=== PATIENT | male | born 1935 | race Caucasian/White ===

== ENCOUNTER 2022-05-18 08:02 | Emergency (ER) | payer MEDICARE, OTHER ==
[~2022-05-18] VITALS: Ht 182.9 cm; Wt 95.2 kg
[~2022-05-18 08:02] MED LIST: ALBU90OI61 INH; ARGINAID POWDE1 EACH PO; ASPI325 PO; ASPI81EC PO; ATOR40TA PO; BISA10S PR; CVS DISPOSABLE399 ML PR; DIAZ2 PO; Docu Liqui50 MG/5 ML PO; Ferrous Sulfat325 M2 PO; HYDR1TAB94 PO; Hair, Skin & N1 EACH PO; MELA3 PO; Milk Of Ma400 MG/5 M PO; NIFE30ER PO; OXYACE5T PO; PANT40 PO; POLY17UD PO; SIMV10 PO; SIMV40 PO; TAMS.4ER PO; VITAMIN D250000 UNIT PO
[2022-05-18 08:26] LABS: Source, Urine Clean Catch
[2022-05-18 08:27] LABS: BASOPHILS ABSOLUTE AUTO 0.04 K/mm3 (0.00-0.23); BASOPHILS PERCENT AUTO 0 % (0-2); EOSINOPHILS ABSOLUTE AUTO 0.03 K/mm3 (0.00-0.68); EOSINOPHILS PERCENT AUTO 0 % (0-6); Hematocrit 45.5 % (37.0-53.0); Hemoglobin 15.6 g/dL (13.5-17.5); IMMATURE GRAN ABSOLUTE AUTO 0.04 K/mm3 (0.00-0.10); IMMATURE GRAN PERCENT AUTO 0 % (0-1); LYMPHOCYTES ABSOLUTE AUTO 0.31 K/mm3 (0.84-5.20); LYMPHOCYTES PERCENT AUTO 3 % (21-46); MONOCYTES ABSOLUTE AUTO 0.12 K/mm3 (0.16-1.47); MONOCYTES PERCENT AUTO 1 % (4-13); Mean Corpuscular HGB 30.4 pg (26.0-34.0); Mean Corpuscular HGB Conc 34.3 g/dL (31.5-36.5); Mean Corpuscular Volume 89 fL (80-100); Mean Platelet Volume 9.9 fL (9.1-12.4); NEUTROPHILS ABSOLUTE AUTO 9.52 K/mm3 (1.96-9.15); NEUTROPHILS PERCENT AUTO 95 % (41-73); Platelet Count 163 K/mm3 (150-400); RDW Coefficient Variation 14.5 % (11.7-14.2); RDW Standard Deviation 47.1 fL (35.1-46.3); Red Blood Cell Count 5.14 M/mm3 (4.30-5.90); White Blood Cell Count 10.06 K/mm3 (4.00-11.30)
[2022-05-18 08:28] LABS: Bilirubin, Urine Neg (Neg); Blood, Urine 4+ (Neg); Glucose Qualitative, Urine Neg (Neg); Ketones, Urine Neg (Neg); Leukocyte Esterase, Urine Neg (Neg); Nitrite, Urine Neg (Neg); Protein, Urine 2+ (Neg); Specific Gravity, Urine 1.015 (1.003-1.022); Urobilinogen, Urine NORM (Normal); pH, Urine 6.5 (5.0-8.0)
[2022-05-18 08:36] LABS: Color, Urine Yellow (P-Yellow)
[2022-05-18 08:37] LABS: Appearance, Urine Clear (Clear)
[2022-05-18 08:48] LABS: Bacteria Few /hpf; Squamous Epithelial Cells Few /hpf (Few); White Blood Cells, Urine 0-2 /hpf (0-5)
[2022-05-18 08:56] LABS: Albumin, Blood 3.7 g/dL (3.4-5.0); Albumin/Globulin Ratio 0.9 (0.8-1.8); Bilirubin, Total 0.7 mg/dL (0.1-1.0); Bun/Creatinine Ratio 27.7 (12.0-20.0); Calcium, Blood 8.8 mg/dL (8.5-10.1); Creatinine, Blood 0.9 mg/dL (0.60-1.20); Globulin, Blood 3.9 g/dL (2.2-4.0); Potassium, Blood 3.9 mmol/L (3.5-5.5); Total Protein, Blood 7.6 g/dL (6.4-8.2)
[2022-05-18 09:14] LABS: Creatine Kinase MB Index 1.1 (0.0-4.0)
[2022-05-18] MEDS ORDERED: DOC250 PO (12:55)
[2022-05-18] MEDS ORDERED: HYDR1TAB94 PO (12:55)
== END 2022-05-18 13:51 | disposition home or self-care (01) ==
LOC: ER 08:02
PROVIDERS: Emergency Medicine
DX: S80.02XA Contusion of left knee, initial encounter (principal); S80.01XA Contusion of right knee, initial encounter; M16.12 Unilateral primary osteoarthritis, left hip; I25.10 Atherosclerotic heart disease of native coronary artery without angina pectoris; N40.0 Benign prostatic hyperplasia without lower urinary tract symptoms; W06.XXXA Fall from bed, initial encounter; Z79.82 Long term (current) use of aspirin; Z79.899 Other long term (current) drug therapy; Z87.891 Personal history of nicotine dependence
CPT/HCPCS: 36415; 70450; 71045; 72170; 72192; 73502; 80053; 81001; 82550; 82553; 85025; 93005; 93010; 96360; 99285-25; J7030

== ENCOUNTER 2022-11-02 22:35 | Emergency (ER) | payer MEDICARE, OTHER ==
[~2022-11-02] VITALS: Ht 182.9 cm; Wt 93.4 kg
[~2022-11-02 22:35] MED LIST changes: -ARGINAID POWDE1 EACH PO; -ASPI81EC PO; +Aspir 8181 MG PO; +CLOPIDOGREL75 MG PO; -CVS DISPOSABLE399 ML PR; +DOC250 PO; +FERSU300 PO; -Ferrous Sulfat325 M2 PO; +Fleet Enema132 ML PR; +MIRALAX17 GM PO; +NICO21TP TOP; +NORVASC5 MG PO; +OMEP20ER PO; +[UNRECOGNIZED DRUG - OTHER] PO
[2022-11-02 22:53] LABS: BASOPHILS ABSOLUTE AUTO 0.05 K/mm3 (0.00-0.23); BASOPHILS PERCENT AUTO 1 % (0-2); EOSINOPHILS ABSOLUTE AUTO 0.18 K/mm3 (0.00-0.68); EOSINOPHILS PERCENT AUTO 3 % (0-6); Hematocrit 37.2 % (37.0-53.0); Hemoglobin 12.5 g/dL (13.5-17.5); IMMATURE GRAN ABSOLUTE AUTO 0.03 K/mm3 (0.00-0.10); IMMATURE GRAN PERCENT AUTO 1 % (0-1); LYMPHOCYTES ABSOLUTE AUTO 1.61 K/mm3 (0.84-5.20); LYMPHOCYTES PERCENT AUTO 25 % (21-46); MONOCYTES ABSOLUTE AUTO 0.54 K/mm3 (0.16-1.47); MONOCYTES PERCENT AUTO 8 % (4-13); Mean Corpuscular HGB 29.8 pg (26.0-34.0); Mean Corpuscular HGB Conc 33.6 g/dL (31.5-36.5); Mean Corpuscular Volume 89 fL (80-100); Mean Platelet Volume 9.6 fL (9.1-12.4); NEUTROPHILS ABSOLUTE AUTO 4.17 K/mm3 (1.96-9.15); NEUTROPHILS PERCENT AUTO 63 % (41-73); Platelet Count 179 K/mm3 (150-400); RDW Coefficient Variation 14.7 % (11.7-14.2); RDW Standard Deviation 47.7 fL (35.1-46.3); Red Blood Cell Count 4.19 M/mm3 (4.30-5.90); White Blood Cell Count 6.58 K/mm3 (4.00-11.30)
[2022-11-02 23:20] LABS: Bilirubin, Total 0.3 mg/dL (0.1-1.0); Bun/Creatinine Ratio 19.6 (12.0-20.0); Calcium, Blood 8.4 mg/dL (8.5-10.1); Creatinine, Blood 0.87 mg/dL (0.60-1.20); Globulin, Blood 3.1 g/dL (2.2-4.0); Total Protein, Blood 6.1 g/dL (6.4-8.2)
[2022-11-02] MEDS ORDERED: TAMSULOSIN HCL0.4 M1 PO (23:36)
[2022-11-02 23:37] LABS: Magnesium, Blood 1.9 mg/dL (1.6-2.4)
[2022-11-02] MEDS ORDERED: TRAZ50 PO (23:37)
[2022-11-03 03:00] VITALS: BP 135/72
[2022-11-03 05:32] LABS: Adenovirus F 40/41 Not Detected (NOT DETECT); Astrovirus Not Detected (NOT DETECT); Campylobacter Sp Not Detected (NOT DETECT); Cryptosporidium Not Detected (NOT DETECT); Cyclospora Cayetanensis Not Detected (NOT DETECT); E. Coli O157 Not Detected (NOT DETECT); Entamoeba Histolytica Not Detected (NOT DETECT); Enteroaggregative E. coli-EAEC Not Detected (NOT DETECT); Enteropathogenic E. coli-EPEC Not Detected (NOT DETECT); Enterotoxigenic E. coli-ETEC Not Detected (NOT DETECT); Giardia Lamblia Not Detected (NOT DETECT); Norovirus GI/GII Not Detected (NOT DETECT); Plesiomonas Shigelloides Not Detected (NOT DETECT); Rotavirus A Not Detected (NOT DETECT); Salmonella Sp Not Detected (NOT DETECT); Sapovirus Not Detected (NOT DETECT); Shiga Toxin-prod E. coli-STEC Not Detected (NOT DETECT); Shigella/Enteroin E. coli-EIEC Not Detected (NOT DETECT); Vibrio Cholerae Not Detected (NOT DETECT); Vibrio Sp Not Detected (NOT DETECT); Yersinia Enterocolitica Not Detected (NOT DETECT)
== END 2022-11-03 03:51 | disposition home or self-care (01) ==
LOC: ER 22:35
PROVIDERS: Student in an Organized Health Care Education/Training Program
DX: S00.83XA Contusion of other part of head, initial encounter (principal); R19.7 Diarrhea, unspecified; W18.30XA Fall on same level, unspecified, initial encounter; Z79.899 Other long term (current) drug therapy; Z79.82 Long term (current) use of aspirin; I25.10 Atherosclerotic heart disease of native coronary artery without angina pectoris; E78.5 Hyperlipidemia, unspecified; J44.9 Chronic obstructive pulmonary disease, unspecified; K21.9 Gastro-esophageal reflux disease without esophagitis
CPT/HCPCS: 70450; 71046; 72125; 80053; 83735; 83880; 84145; 84484; 85025; 87507; 93005; 93010; 96360; 99285-25; A9270; J7120

== ENCOUNTER 2023-07-17 13:10 | Emergency (ER) | payer MEDICARE, OTHER ==
[~2023-07-17] VITALS: Ht 188 cm; Wt 97.5 kg
[~2023-07-17 13:10] MED LIST changes: +ACET500 PO; +ALBU90OI INH; +BUDE.25 INH; +DOCUZEN 8.6-501 EACH PO; +ELIQUIS5 M2 PO; +FINA5 PO; +MIRT15ST PO; +Nicoderm Cq1 EAC1 TOP; +TAMSULOSIN HCL0.4 M1 PO; +TRAZ50 PO
[2023-07-17 14:15] LABS: Albumin/Globulin Ratio 0.8 (0.8-1.8); Bilirubin, Total 0.7 mg/dL (0.1-1.0); Bun/Creatinine Ratio 21.7 (12.0-20.0); Calcium, Blood 8.9 mg/dL (8.5-10.1); Creatinine, Blood 0.69 mg/dL (0.60-1.20); Globulin, Blood 3.6 g/dL (2.2-4.0); Potassium, Blood 3.8 mmol/L (3.5-5.5); Total Protein, Blood 6.6 g/dL (6.4-8.2)
[2023-07-17] MEDS ORDERED: Cephalexin Monohydrate 500 MG Cap PO ONE (14:15)
[2023-07-17 14:26] LABS: BASOPHILS ABSOLUTE AUTO 0.04 K/mm3 (0.00-0.23); BASOPHILS PERCENT AUTO 0 % (0-2); EOSINOPHILS ABSOLUTE AUTO 0.28 K/mm3 (0.00-0.68); EOSINOPHILS PERCENT AUTO 3 % (0-6); Hematocrit 32.4 % (37.0-53.0); Hemoglobin 10.8 g/dL (13.5-17.5); IMMATURE GRAN ABSOLUTE AUTO 0.03 K/mm3 (0.00-0.10); IMMATURE GRAN PERCENT AUTO 0 % (0-1); LYMPHOCYTES ABSOLUTE AUTO 1.05 K/mm3 (0.84-5.20); LYMPHOCYTES PERCENT AUTO 11 % (21-46); MONOCYTES PERCENT AUTO 6 % (4-13); Mean Corpuscular HGB 29.8 pg (26.0-34.0); Mean Corpuscular HGB Conc 33.3 g/dL (31.5-36.5); Mean Corpuscular Volume 90 fL (80-100); Mean Platelet Volume 10.4 fL (9.1-12.4); NEUTROPHILS ABSOLUTE AUTO 7.63 K/mm3 (1.96-9.15); NEUTROPHILS PERCENT AUTO 79 % (41-73); Platelet Count 196 K/mm3 (150-400); RDW Coefficient Variation 16.1 % (11.7-14.2); RDW Standard Deviation 53.2 fL (35.1-46.3); Red Blood Cell Count 3.62 M/mm3 (4.30-5.90); White Blood Cell Count 9.63 K/mm3 (4.00-11.30)
[2023-07-17] MEDS ORDERED: CEPH500 PO ×2 (14:32→15:27)
[2023-07-17 14:45] VITALS: BP 117/59
== END 2023-07-17 15:12 | disposition home or self-care (01) ==
LOC: ER 13:10
PROVIDERS: Student in an Organized Health Care Education/Training Program
DX: N39.0 Urinary tract infection, site not specified (principal); E78.00 Pure hypercholesterolemia, unspecified; J44.9 Chronic obstructive pulmonary disease, unspecified; I10 Essential (primary) hypertension; Z79.01 Long term (current) use of anticoagulants; Z79.02 Long term (current) use of antithrombotics/antiplatelets; Z79.899 Other long term (current) drug therapy
CPT/HCPCS: 80053; 85025; 99285; A9270

== ENCOUNTER 2023-09-12 16:22 | Emergency (ER) | payer MEDICARE, OTHER ==
[~2023-09-12] VITALS: Ht 182.9 cm; Wt 88.0 kg
[~2023-09-12 16:22] MED LIST changes: +CEPH500 PO
[2023-09-12 19:24] LABS: Source, Urine Foley catheter
[2023-09-12 19:35] LABS: Appearance, Urine Hazy (Clear); Bilirubin, Urine Neg (Neg); Blood, Urine 5+ (Neg); Color, Urine Brown (P-Yellow); Glucose Qualitative, Urine Neg (Neg); Ketones, Urine 1+ (Neg); Leukocyte Esterase, Urine 3+ (Neg); Nitrite, Urine Pos (Neg); Protein, Urine 3+ (Neg); Urobilinogen, Urine NORM (Normal)
[2023-09-12 19:49] LABS: White Blood Cells, Urine 50-100 /hpf (0-5)
[2023-09-12 19:50] LABS: Bacteria Many /hpf; Red Blood Cells, Urine TNTC /hpf (0-2); Squamous Epithelial Cells Few /hpf (Few)
[2023-09-12] MEDS ORDERED: CEFP200 PO (19:59)
[2023-09-12 20:00] VITALS: BP 116/95
[2023-09-12] MEDS ORDERED: Cefpodoxime Proxetil 200 MG Tab PO ONE (20:00)
[2023-09-18] MEDS ORDERED: SULTRIDS PO (10:31)
== END 2023-09-12 20:25 | disposition home or self-care (01) ==
LOC: ER 16:22
PROVIDERS: Emergency Medicine
DX: T83.518A Infection and inflammatory reaction due to other urinary catheter, initial encounter (principal); S37.30XA Unspecified injury of urethra, initial encounter; N39.0 Urinary tract infection, site not specified; E78.5 Hyperlipidemia, unspecified; K21.9 Gastro-esophageal reflux disease without esophagitis; J44.9 Chronic obstructive pulmonary disease, unspecified; Z79.899 Other long term (current) drug therapy
CPT/HCPCS: 81001; 87077; 87086; 87147; 87186; 99283; A9270

== ENCOUNTER 2023-09-14 18:29 | Inpatient (IN) | payer OTHER, MEDICARE ==
[~2023-09-14] VITALS: Ht 182.9 cm; Wt 85.1 kg
[~2023-09-14 18:29] MED LIST changes: +CEFP200 PO
[2023-09-14] MEDS ORDERED: NS 1,000 ML IV SCH ×2 (19:10→21:05)
[2023-09-14] MEDS ORDERED: Piperacillin/Tazobactam Sod 4.5 GM in NS 100 ML IV ONE (19:20)
[2023-09-14 19:41] LABS: BASOPHILS ABSOLUTE AUTO 0.04 K/mm3 (0.00-0.23); BASOPHILS PERCENT AUTO 1 % (0-2); EOSINOPHILS ABSOLUTE AUTO 0.28 K/mm3 (0.00-0.68); EOSINOPHILS PERCENT AUTO 4 % (0-6); Hematocrit 32.9 % (37.0-53.0); Hemoglobin 10.9 g/dL (13.5-17.5); IMMATURE GRAN ABSOLUTE AUTO 0.03 K/mm3 (0.00-0.10); IMMATURE GRAN PERCENT AUTO 0 % (0-1); LYMPHOCYTES PERCENT AUTO 15 % (21-46); MONOCYTES ABSOLUTE AUTO 0.74 K/mm3 (0.16-1.47); MONOCYTES PERCENT AUTO 9 % (4-13); Mean Corpuscular HGB 29.1 pg (26.0-34.0); Mean Corpuscular HGB Conc 33.1 g/dL (31.5-36.5); Mean Corpuscular Volume 88 fL (80-100); Mean Platelet Volume 9.2 fL (9.1-12.4); NEUTROPHILS ABSOLUTE AUTO 5.63 K/mm3 (1.96-9.15); NEUTROPHILS PERCENT AUTO 71 % (41-73); Platelet Count 207 K/mm3 (150-400); RDW Coefficient Variation 15.7 % (11.7-14.2); RDW Standard Deviation 50.3 fL (35.1-46.3); Red Blood Cell Count 3.75 M/mm3 (4.30-5.90); White Blood Cell Count 7.92 K/mm3 (4.00-11.30)
[2023-09-14 20:07] LABS: Albumin, Blood 2.9 g/dL (3.4-5.0); Albumin/Globulin Ratio 0.7 (0.8-1.8); Bilirubin, Total 0.4 mg/dL (0.1-1.0); Bun/Creatinine Ratio 23.8 (12.0-20.0); Calcium, Blood 8.5 mg/dL (8.5-10.1); Creatinine, Blood 0.93 mg/dL (0.60-1.20); Globulin, Blood 4.1 g/dL (2.2-4.0)
[2023-09-14 20:45] LABS: Influenza A, PCR NEGATIVE (NEGATIVE); Influenza B, PCR NEGATIVE (NEGATIVE); Resp Syncytial Virus, PCR NEGATIVE (NEGATIVE); SARS-Cov-2 (COVID-19) PCR, MMC NEGATIVE (NEGATIVE)
[2023-09-14] MEDS ORDERED: Acetaminophen 325 MG TABLET PO PRN (21:05)
[2023-09-14] MEDS ORDERED: Ondansetron HCl 2 MG / ML 2ML Vial IV PRN (21:05)
[2023-09-14] MEDS ORDERED: cefTAZidime 1,000 MG in NS 50 ML IV ONE (21:10)
[2023-09-14 21:51] LABS: Source, Urine Foley catheter
[2023-09-14 21:53] LABS: Bilirubin, Urine Neg (Neg); Blood, Urine 5+ (Neg); Glucose Qualitative, Urine Neg (Neg); Ketones, Urine 1+ (Neg); Leukocyte Esterase, Urine 3+ (Neg); Nitrite, Urine Pos (Neg); Protein, Urine 3+ (Neg); Urobilinogen, Urine NORM (Normal)
[2023-09-14] MEDS ORDERED: CLOP75 PO (21:59)
[2023-09-14] MEDS ORDERED: Vancomycin HCL 1,500 MG in NS 250 ML IV SCH (22:00)
[2023-09-14 22:03] LABS: Appearance, Urine Turbid (Clear); Color, Urine Yellow (P-Yellow)
[2023-09-14 22:04] LABS: Bacteria Many /hpf; Squamous Epithelial Cells Not Seen /hpf (Few); White Blood Cells, Urine TNTC /hpf (0-5)
[2023-09-14 22:13] LABS: International Normalized Ratio 1.04; Prothrombin Time Results 11.1 Sec (9.7-11.5)
[2023-09-14 22:50] VITALS: BP 136/65
[2023-09-15 03:32] VITALS: BP 121/58
[2023-09-15 04:38] LABS: BASOPHILS ABSOLUTE AUTO 0.02 K/mm3 (0.00-0.23); BASOPHILS PERCENT AUTO 0 % (0-2); EOSINOPHILS ABSOLUTE AUTO 0.26 K/mm3 (0.00-0.68); EOSINOPHILS PERCENT AUTO 4 % (0-6); Hematocrit 28.9 % (37.0-53.0); Hemoglobin 9.6 g/dL (13.5-17.5); IMMATURE GRAN ABSOLUTE AUTO 0.03 K/mm3 (0.00-0.10); IMMATURE GRAN PERCENT AUTO 1 % (0-1); LYMPHOCYTES ABSOLUTE AUTO 1.35 K/mm3 (0.84-5.20); LYMPHOCYTES PERCENT AUTO 23 % (21-46); MONOCYTES ABSOLUTE AUTO 0.65 K/mm3 (0.16-1.47); MONOCYTES PERCENT AUTO 11 % (4-13); Mean Corpuscular HGB 28.9 pg (26.0-34.0); Mean Corpuscular HGB Conc 33.2 g/dL (31.5-36.5); Mean Corpuscular Volume 87 fL (80-100); Mean Platelet Volume 9.3 fL (9.1-12.4); NEUTROPHILS ABSOLUTE AUTO 3.68 K/mm3 (1.96-9.15); NEUTROPHILS PERCENT AUTO 62 % (41-73); Platelet Count 179 K/mm3 (150-400); RDW Coefficient Variation 15.6 % (11.7-14.2); RDW Standard Deviation 50.1 fL (35.1-46.3); Red Blood Cell Count 3.32 M/mm3 (4.30-5.90); White Blood Cell Count 5.99 K/mm3 (4.00-11.30)
[2023-09-15 05:02] LABS: Albumin, Blood 2.5 g/dL (3.4-5.0); Albumin/Globulin Ratio 0.7 (0.8-1.8); Bilirubin, Total 0.3 mg/dL (0.1-1.0); Bun/Creatinine Ratio 21.8 (12.0-20.0); Calcium, Blood 7.7 mg/dL (8.5-10.1); Creatinine, Blood 0.78 mg/dL (0.60-1.20); Globulin, Blood 3.4 g/dL (2.2-4.0); Potassium, Blood 3.6 mmol/L (3.5-5.5); Total Protein, Blood 5.9 g/dL (6.4-8.2)
--- NOTE | 2023-09-15 05:27 | NUR ---
Patient arrived to room from ED around 2240. Patient alert and oriented x3, VSS, resting comfortably in bed on room air. White catheter in place, intact, draining turbid yellow/milind fluid. Patient tolerating IV Vancomycin, Ceftazidime, and NS @ 75 mL/hr.
[2023-09-15 07:57] VITALS: BP 123/62
[2023-09-15] MEDS ORDERED: cefTAZidime 1,000 MG in NS 50 ML IV SCH (08:00)
[2023-09-15] MEDS ORDERED: Docusate Sodium/Senna 1 Tab PO PRN (10:30)
[2023-09-15] MEDS ORDERED: Sod Phosphate/Sod Biphosphate 132 ML BTL PR PRN (10:30)
[2023-09-15] MEDS ORDERED: Polyethylene Glycol 3350 17 gm PO PRN (10:30)
[2023-09-15] MEDS ORDERED: Magnesium Hydroxide Conc 10 ML UDC PO PRN (10:30)
[2023-09-15] MEDS ORDERED: Budesonide 0.25 MG / 2 ML RESP INH SCH (10:40)
[2023-09-15] MEDS ORDERED: Albuterol HFA200 ACT/6.7 GM INH INH PRN (10:40)
[2023-09-15 14:56] VITALS: BP 129/71
--- NOTE | 2023-09-15 19:36 | NUR ---
SUMMARY- PT A/O X3, MORE ALERT AND AWAKE TODAY. STATES HE IS FEELING BETTER. PT REFUSED PHYSICAL THERAPY STATING HE FELT EXHAUSTED AFTER LUNCH. PT'S GRANDDAUGHTER STATES BASELINE IS BED TO CHAIR 2 PIVOT TX SINCE MAY HE HAS BEEN UNAMBULATORY. PT TURNED Q2 WHILE IN BED. CHRONIC LIMA, MED CLEAR YELLOW. 600ML OUT 12HR SHIFT. HAS STEFANO DISCHARGE FROM [facility]. OTHERWISE SKIN INTACT. TOLERATING ABOUT 25-50% OF MEALS AND MODERATE FLUIDS. STRONG COUGH, OCC PRODUCTION. DENIES PAIN. REPORTED TO MARISA FLAHERTY RN
[2023-09-15 19:51] VITALS: BP 131/66
[2023-09-15] MEDS ORDERED: Potassium Chloride 20 MEQ TabCR PO ONE (20:00)
[2023-09-15] MEDS ORDERED: Atorvastatin 40 MG Tab PO SCH (21:00)
[2023-09-15] MEDS ORDERED: Mirtazapine 15 MG SoluTab PO SCH (21:00)
[2023-09-15] MEDS ORDERED: Clopidogrel Bisulfate 75 MG Tab PO SCH (21:00)
[2023-09-15] MEDS ORDERED: Tamsulosin HCl 0.4 MG Cap PO SCH (21:00)
[2023-09-16 04:06] VITALS: BP 137/61
[2023-09-16 04:36] LABS: BASOPHILS ABSOLUTE AUTO 0.03 K/mm3 (0.00-0.23); BASOPHILS PERCENT AUTO 1 % (0-2); EOSINOPHILS ABSOLUTE AUTO 0.32 K/mm3 (0.00-0.68); EOSINOPHILS PERCENT AUTO 6 % (0-6); Hematocrit 32.3 % (37.0-53.0); Hemoglobin 10.6 g/dL (13.5-17.5); IMMATURE GRAN ABSOLUTE AUTO 0.02 K/mm3 (0.00-0.10); IMMATURE GRAN PERCENT AUTO 0 % (0-1); LYMPHOCYTES ABSOLUTE AUTO 1.39 K/mm3 (0.84-5.20); LYMPHOCYTES PERCENT AUTO 26 % (21-46); MONOCYTES ABSOLUTE AUTO 0.47 K/mm3 (0.16-1.47); MONOCYTES PERCENT AUTO 9 % (4-13); Mean Corpuscular HGB 28.8 pg (26.0-34.0); Mean Corpuscular HGB Conc 32.8 g/dL (31.5-36.5); Mean Corpuscular Volume 88 fL (80-100); Mean Platelet Volume 9.2 fL (9.1-12.4); NEUTROPHILS PERCENT AUTO 59 % (41-73); Platelet Count 186 K/mm3 (150-400); RDW Coefficient Variation 15.4 % (11.7-14.2); RDW Standard Deviation 49.3 fL (35.1-46.3); Red Blood Cell Count 3.68 M/mm3 (4.30-5.90); White Blood Cell Count 5.43 K/mm3 (4.00-11.30)
[2023-09-16 05:13] LABS: Albumin, Blood 2.4 g/dL (3.4-5.0); Albumin/Globulin Ratio 0.6 (0.8-1.8); Bilirubin, Total 0.3 mg/dL (0.1-1.0); Bun/Creatinine Ratio 19.2 (12.0-20.0); Calcium, Blood 7.9 mg/dL (8.5-10.1); Creatinine, Blood 0.63 mg/dL (0.60-1.20); Globulin, Blood 3.7 g/dL (2.2-4.0); Potassium, Blood 4.1 mmol/L (3.5-5.5); Total Protein, Blood 6.1 g/dL (6.4-8.2)
--- NOTE | 2023-09-16 05:53 | NUR ---
Patient alert and oriented x3, VSS, resting comfortably in bed on room air. White catheter in place and intact, draining appropriately. IV antibiotics tolerated well to right AC PIV.
--- NOTE | 2023-09-16 06:22 | NUR ---
09/15 1999 Hospitalist team notified patient demonstrated trigeminy PVC's for about a minute, asymptomatic, VSS. Electrolytes reviewed with MD, orders received and entered for 40 mEq Potassium PO and recheck CMP, magnesium levels in AM.
[2023-09-16 07:12] VITALS: BP 133/63
[2023-09-16] MEDS ORDERED: Enoxaparin 40 MG/0.4 ML SYR SC SCH (09:00)
[2023-09-16] MEDS ORDERED: Finasteride 5 MG Tab PO SCH (09:00)
[2023-09-16 15:03] VITALS: BP 146/71
--- NOTE | 2023-09-16 16:35 | NUR ---
SHIFT SUMMARY PATIENT ALERT AND INTERACTIVE BUT CONFUSED. PATIENT UP TO CHAIR X2. CATHETER DRAINING YELLOW URINE. PATIENT CONTINUES TO GET IV ANTIBIOTICS. PATIENT REPEATEDLLY ASKING ABOUT GOING HOME. PATIENT ABLE TO FOLLOW SIMPLE DIRECTIONS BUT EASILY OVERWHELMED.
[2023-09-16 19:44] VITALS: BP 129/91
[2023-09-16] MEDS ORDERED: Lactobacil 2-S.Thermo-Bifido 1 1 Cap PO SCH (21:00)
[2023-09-16 21:26] LABS: Vancomycin, Trough 9.9 ug/mL (5.0-10.0)
[2023-09-16] MEDS ORDERED: Vancomycin HCL 1,250 MG in NS 250 ML IV SCH (22:00)
[2023-09-17 04:12] VITALS: BP 130/55
[2023-09-17 05:36] LABS: BASOPHILS ABSOLUTE AUTO 0.04 K/mm3 (0.00-0.23); BASOPHILS PERCENT AUTO 1 % (0-2); EOSINOPHILS ABSOLUTE AUTO 0.39 K/mm3 (0.00-0.68); EOSINOPHILS PERCENT AUTO 7 % (0-6); Hematocrit 33.8 % (37.0-53.0); Hemoglobin 11.1 g/dL (13.5-17.5); IMMATURE GRAN ABSOLUTE AUTO 0.02 K/mm3 (0.00-0.10); IMMATURE GRAN PERCENT AUTO 0 % (0-1); LYMPHOCYTES ABSOLUTE AUTO 1.35 K/mm3 (0.84-5.20); LYMPHOCYTES PERCENT AUTO 24 % (21-46); MONOCYTES ABSOLUTE AUTO 0.44 K/mm3 (0.16-1.47); MONOCYTES PERCENT AUTO 8 % (4-13); Mean Corpuscular HGB 28.5 pg (26.0-34.0); Mean Corpuscular HGB Conc 32.8 g/dL (31.5-36.5); Mean Corpuscular Volume 87 fL (80-100); Mean Platelet Volume 9.4 fL (9.1-12.4); NEUTROPHILS ABSOLUTE AUTO 3.31 K/mm3 (1.96-9.15); NEUTROPHILS PERCENT AUTO 60 % (41-73); Platelet Count 220 K/mm3 (150-400); RDW Coefficient Variation 15.1 % (11.7-14.2); RDW Standard Deviation 48.4 fL (35.1-46.3); Red Blood Cell Count 3.89 M/mm3 (4.30-5.90); White Blood Cell Count 5.55 K/mm3 (4.00-11.30)
[2023-09-17 05:55] LABS: Albumin, Blood 2.6 g/dL (3.4-5.0); Albumin/Globulin Ratio 0.7 (0.8-1.8); Bilirubin, Total 0.5 mg/dL (0.1-1.0); Bun/Creatinine Ratio 13.1 (12.0-20.0); Calcium, Blood 8.6 mg/dL (8.5-10.1); Creatinine, Blood 0.76 mg/dL (0.60-1.20); Globulin, Blood 3.7 g/dL (2.2-4.0); Potassium, Blood 4.3 mmol/L (3.5-5.5); Total Protein, Blood 6.3 g/dL (6.4-8.2)
--- NOTE | 2023-09-17 05:56 | NUR ---
Patient alert and oriented x2-3, VSS, resting comfortably in bed on room air. White catheter in place, draining well. Patient turned q2 hours for pressure injury prevention. Patient voicing eagerness to return to [facility] sometime today.
[2023-09-17 07:05] VITALS: BP 127/95
[2023-09-17 15:34] VITALS: BP 136/69
--- NOTE | 2023-09-17 18:08 | NUR ---
SHIFT SUMMARY PATIENT IN BED ALL SHIFT, ABLE TO ASSIST WELL WITH TURNS. A/O X2-3 THIS SHIFT. PERSISTENTLY ASKING FOR CIGARETTES THIS SHIFT. ABLE TO REDIRECT SOMEWHAT. LIMA IN PLACE, DRAINING FREELY, YELLOW URINE. NO C/O PAIN. 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 DISCHARGE HELD THIS SHIFT DUE TO LOW STAFFING AT [facility]. HOPEFUL FOR DISCHARGE TOMORROW. MED REC IN FRONT OF CHART, NOT COMPLETE. CALL LIGHT IN REACH, ABLE TO MAKE NEEDS KNOWN. CARES ONGOING.
[2023-09-17 19:52] VITALS: BP 106/54
[2023-09-17] MEDS ORDERED: NS 250 ML IV PRN (21:45)
--- NOTE | 2023-09-18 04:59 | NUR ---
SHIFT SUMMARY PT SLEPT FOR MOST OF SHIFT. PT A&O 3-4 WHEN AWAKE. ASKS QUESTIONS FREQUENTLY. PAIN MANAGED PER EMAR. LIMA CATHETER IN PLACE, DRAINING YELLOW URINE TO GRAVITY. PT UP TO BSC W/ 2 PERS ASST. VSS. NO OTHER CONCERNS AT THIS TIME, CALL LIGHT WITHIN REACH
[2023-09-18 05:20] VITALS: BP 146/68
[2023-09-18 07:10] VITALS: BP 137/70
[2023-09-18 09:08] LABS: BASOPHILS ABSOLUTE AUTO 0.03 K/mm3 (0.00-0.23); BASOPHILS PERCENT AUTO 1 % (0-2); EOSINOPHILS ABSOLUTE AUTO 0.35 K/mm3 (0.00-0.68); EOSINOPHILS PERCENT AUTO 6 % (0-6); Hematocrit 35.5 % (37.0-53.0); Hemoglobin 11.9 g/dL (13.5-17.5); IMMATURE GRAN ABSOLUTE AUTO 0.03 K/mm3 (0.00-0.10); IMMATURE GRAN PERCENT AUTO 1 % (0-1); LYMPHOCYTES ABSOLUTE AUTO 1.39 K/mm3 (0.84-5.20); LYMPHOCYTES PERCENT AUTO 23 % (21-46); MONOCYTES ABSOLUTE AUTO 0.34 K/mm3 (0.16-1.47); MONOCYTES PERCENT AUTO 6 % (4-13); Mean Corpuscular HGB 28.9 pg (26.0-34.0); Mean Corpuscular HGB Conc 33.5 g/dL (31.5-36.5); Mean Corpuscular Volume 86 fL (80-100); Mean Platelet Volume 9.1 fL (9.1-12.4); NEUTROPHILS ABSOLUTE AUTO 3.89 K/mm3 (1.96-9.15); NEUTROPHILS PERCENT AUTO 65 % (41-73); Platelet Count 218 K/mm3 (150-400); RDW Standard Deviation 47.7 fL (35.1-46.3); Red Blood Cell Count 4.12 M/mm3 (4.30-5.90); White Blood Cell Count 6.03 K/mm3 (4.00-11.30)
[2023-09-18 09:28] LABS: Albumin, Blood 2.7 g/dL (3.4-5.0); Albumin/Globulin Ratio 0.7 (0.8-1.8); Bilirubin, Total 0.3 mg/dL (0.1-1.0); Bun/Creatinine Ratio 16.7 (12.0-20.0); Calcium, Blood 8.5 mg/dL (8.5-10.1); Creatinine, Blood 0.72 mg/dL (0.60-1.20); Globulin, Blood 4.1 g/dL (2.2-4.0); Potassium, Blood 4.1 mmol/L (3.5-5.5); Total Protein, Blood 6.8 g/dL (6.4-8.2)
[2023-09-18 09:54] LABS: Vancomycin, Trough 20.2 ug/mL (5.0-10.0)
[2023-09-18] MEDS ORDERED: CIPR500 PO (10:28)
[2023-09-18] MEDS ORDERED: SULTRIDS PO ×2 (10:31→10:33)
--- NOTE | 2023-09-18 13:51 | NUR ---
DISCHARGE SUMMARY PT DC THIS SHIFT. PT WAS ACCOMPANIED BY [employer] SUPPORT ENGINE[employer] FROM [facility].
[2023-09-18] MEDS ORDERED: Vancomycin HCL 1,000 MG in NS 250 ML IV SCH (22:00)
== END 2023-09-18 13:49 | disposition home or self-care (01) | DRG 871 ==
LOC: ER 18:29 → MEDS 21:31 → ENPENDDIS 09-17 10:30 → MEDS 09-17 22:30
PROVIDERS: Emergency Medicine; Family Medicine; Internal Medicine; ADMIT Internal Medicine
PROC: 3E03329 Introduction of Other Anti-infective into Peripheral Vein, Percutaneous Approach (ICD-10-PCS; principal; 2023-09-14)
PROC: 0T9B70Z Drainage of Bladder with Drainage Device, Via Natural or Artificial Opening (ICD-10-PCS; 2023-09-14)
DX: A41.02 Sepsis due to Methicillin resistant Staphylococcus aureus (principal); G93.41 Metabolic encephalopathy; J18.9 Pneumonia, unspecified organism; N39.0 Urinary tract infection, site not specified; J44.0 Chronic obstructive pulmonary disease with (acute) lower respiratory infection; A41.52 Sepsis due to Pseudomonas; K21.9 Gastro-esophageal reflux disease without esophagitis; N40.0 Benign prostatic hyperplasia without lower urinary tract symptoms; I25.10 Atherosclerotic heart disease of native coronary artery without angina pectoris; D64.9 Anemia, unspecified; E78.5 Hyperlipidemia, unspecified; G47.00 Insomnia, unspecified; D69.6 Thrombocytopenia, unspecified; Z79.899 Other long term (current) drug therapy; Z86.73 Personal history of transient ischemic attack (TIA), and cerebral infarction without residual deficits; Z86.79 Personal history of other diseases of the circulatory system; Z96.653 Presence of artificial knee joint, bilateral; Z98.890 Other specified postprocedural states
CPT/HCPCS: 0241U; 36415; 71045; 76770; 80053; 80202; 81001; 83605; 83735; 83880; 84145; 85025; 85610; 87040; 87077; 87086; 87147; 87186; 93005; 93010; 94640; 94664; 94760; 96365; 97110; 97161; 97166; 97530; 97535; 99285-25; A9270; J0713; J1650; J2543; J3370; J7030; J7050